=== PATIENT | female | born 1970 | race Caucasian/White ===

== ENCOUNTER 2017-03-23 15:06 | Emergency (ER) | payer OTHER ==
[~2017-03-23] VITALS: Ht 142.2 cm; Wt 44.9 kg
--- NOTE | ~2017-03-23 | CT2 ---
[facility] A Service of [facility] RADIOLOGY TEXT RESULTS PATIENT: OPAL MCCRACKEN LOCATION: [facility] : [birth year] UNIT #: [id number] AGE: [address]: Osmin Baker MD SEX: F ORDER DR: [id number] [facility]. [place], [place] [address] [id number] E MR#: [id number] Acc #: [id number] NAME: OPAL MCCRACKEN : 1970 SEX: F STUDY DATE/TIME: 03/23/2017 17:21 UNIT: MARK ROOM: STUDY DESCRIPTION: CT Abd and Pelv W Cont Attending Physician: Osmin Baker M.D. Ordering Physician: Jeet Shea M.D. Primary Care Physician: Osmin Weldon M.D. MEDICAL IMAGING REPORT This report is preliminary unless electronic signature is present EXAM CT abdomen and pelvis. INDICATION Bilateral lower quadrant abdominal pain for 3 weeks. Nausea, vomiting, and diarrhea. TECHNIQUE CT of the abdomen and pelvis utilizing 100 mL Isovue-370 IV contrast. Coronal and sagittal reconstructions were obtained. This CT exam was performed with one or more of the following radiation dose reduction techniques: automatic exposure control, adjustment of mA and/or kV according to patient size, and iterative reconstruction. COMPARISON None available. FINDINGS ABDOMEN: There is borderline hepatomegaly. There is diffuse hepatic steatosis. The gallbladder is surgically absent. The pancreas, spleen, adrenal glands, and kidneys are within normal limits. The bowel is not dilated. The appendix is surgically absent. There is a supraumbilical anterior abdominal wall hernia. Given the linear orientation, this is felt to be an incisional type hernia. No complicating features. There are some borderline retroperitoneal lymph nodes extending along the right iliac chain. The uterus and ovaries are grossly normal. 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 No new osseous abnormalities. IMPRESSION [facility] A Service of [facility] RADIOLOGY TEXT RESULTS PATIENT: OAPL MCCRACKEN LOCATION: [facility] : [birth year] UNIT #: [id number] AGE: [address]: Osmin Baker MD SEX: F ORDER DR: 1. Hepatic steatosis and borderline hepatomegaly. 2. Increased number of small subcentimeter lymph nodes along the right iliac lymph node chain. It is not considered to be pathologically enlarged, however, there are unusual in their number. Consider a precautionary followup exam to further evaluate. No additional poonam stations are enlarged. 3. Complex anterior abdominal bowel wall hernia, likely an incisional type hernia. No complicating features. Dictated by... Syed Brower M.D. THIS IS AN ELECTRONICALLY VERIFIED REPORT Syed Brower M.D. at 03/24/2017 7:49 PM PEREZ/xavier TD: 03/24/2017 17:40 JOB #: [id number] MEDICAL IMAGING REPORT Page 1 of 1 COPY
[~2017-03-23 15:06] MED LIST: ALEVE220 M1 PO; CALCIUM + D 6001 TA1 PO; DESMOPRESSIN A0.1 MG PO; HYDROXYUREA500 M1 PO; LEVOTHYROXINE PO; NAPROXEN PO; NEURONTIN PO; PHENERGAN PO; PHENERGAN SUPP25 MG PR; PLAQUENIL200 MG PO; PREDNISONE; PREDNISONE5 M1 PO; PRILOSEC PO; ROXICODONE5 MG PO; TIGAN PO; ZANAFLEX PO; ZOFRANODT PO
[2017-03-23 15:37] LABS: BASOPHIL% 0.3 % (0-2.5); EOSINOPHIL% 0.2 % (0.0-7.0); HEMATOCRIT 35.7 % (35.0-45.0); HEMOGLOBIN 11.5 gm/dL (12.0-16.0); LYMPHOCYTE# 0.8 X10e3 (1.0-3.5); LYMPHOCYTE% 14.5 % (17.0-45.0); MEAN CELL VOLUME 80.1 FL (83-96); MEAN CORPUSCULAR HEMOGLOBIN 25.8 PG (28-34); MEAN CORPUSCULAR HGB CONC 32.2 g/dL (30-36); MEAN PLATELET VOLUME 7.9 FL (6.5-11.5); MONOCYTE# 0.1 X10e3 (0-1.0); MONOCYTE% 2.1 % (3.0-12.0); NEUTROPHIL# 4.4 X10e3 (1.5-7.1); NEUTROPHIL% 82.9 % (40-75); PLATELET COUNT 184 X10e3 (140-420); RED BLOOD COUNT 4.45 X10e (3.90-5.30); RED CELL DISTRIBUTION WIDTH 17.8 % (11.0-15.5); WHITE BLOOD COUNT 5.3 X10e3 (4.0-10.5)
[2017-03-23 15:43] LABS: DIFF IND NO
[2017-03-23 16:02] LABS: ALBUMIN SERUM 2.4 g/dL (3.5-5.0); BILIRUBIN, DIRECT 0.2 mg/dL (0.0-0.2); BILIRUBIN,INDIRECT 0.5 mg/dL (0.0-0.9); BILIRUBIN,TOTAL 0.7 mg/dL (0.2-2.0); BUN/CREATININE RATIO 13.63; CALCIUM SERUM 7.7 mg/dL (8.4-10.2); CREATININE SERUM 1.1 mg/dL (0.6-1.4); GLOM FILT RATE Estimated 59.8 mL/min (>60); POTASSIUM 3.9 mmol/L (3.5-5.1); PROTEIN TOTAL SERUM 6.3 g/dL (6.0-8.3)
[2017-03-23 16:09] LABS: URINE APPEARANCE CLEAR; URINE BILIRUBIN NEG (NEG); URINE BLOOD NEG (NEG); URINE COLOR DK YELLOW; URINE GLUCOSE NEG (NEG); URINE KETONE NEG (NEG); URINE LEUKOCYTE ESTERASE NEG (NEG); URINE NITRATE NEG (NEG); URINE PH 5.5 (5-8); URINE PROTEIN TRACE (NEG)
[2017-03-23 16:16] LABS: CULTURE INDICATED? NO; URINE SOURCE CATH
== END 2017-03-23 19:55 | disposition home or self-care (01) ==
LOC: CED 15:06
PROVIDERS: Emergency Medicine
DX: E87.1 Hypo-osmolality and hyponatremia (principal); E11.9 Type 2 diabetes mellitus without complications; E03.9 Hypothyroidism, unspecified; G47.33 Obstructive sleep apnea (adult) (pediatric); F17.200 Nicotine dependence, unspecified, uncomplicated; Z90.49 Acquired absence of other specified parts of digestive tract; Z88.1 Allergy status to other antibiotic agents; Z88.5 Allergy status to narcotic agent
CPT/HCPCS: 36415; 51701; 74177; 80048; 80076; 81003; 82150; 83605; 83690; 85025; 96361; 96374; 96375; 99284; J2270; J2405; Q9967

== ENCOUNTER 2017-04-03 13:13 | Emergency (ER) | payer OTHER ==
[~2017-04-03] VITALS: Ht 142.2 cm; Wt 44.9 kg
--- NOTE | ~2017-04-03 | EKG ---
PATIENT: OPAL MCCRACKEN UNIT #: [id number] Ventricular Rate: 79 BPM Atrial Rate: 79 BPM P-R Interval: 138 ms QRS Duration: 84 ms Q-T Interval: 416 ms QTC Calculation(Bezet): 477 ms P Austin: 60 degrees Calculated R Austin: 27 degrees Calculated T Austin: 31 degrees Diagnosis Line: Normal sinus rhythm Diagnosis Line: Nonspecific T wave abnormality Diagnosis Line: probably normal ekg Diagnosis Line: No previous ECGs available Diagnosis Line: Confirmed by VIVI MUÑOZ MD ([id number]) on 04/04/2017 Diagnosis Line: 10:22:06 PM INTERPRETING MD: TONI COLLINS
--- NOTE | ~2017-04-03 | CR72 ---
[facility] A Service of [facility] RADIOLOGY TEXT RESULTS PATIENT: OPAL MCCRACKEN LOCATION: [facility] : 68 UNIT #: [id number] AGE: [address]: Catracho Hilliard MD SEX: F ORDER DR: [id number] [facility] [address] [facility]. [place], [place] [address] [id number] E MR#: [id number] Acc #: [id number] NAME: OPAL MCCRACKEN : 1970 SEX: F STUDY DATE/TIME: 04/03/2017 13:52 UNIT: [facility] ROOM: STUDY DESCRIPTION: CR Chest Single View Portable Attending Physician: Milana Kay M.D. Ordering Physician: Milana Kay M.D. Primary Care Physician: Osmin Weldon M.D. MEDICAL IMAGING REPORT This report is preliminary unless electronic signature is present EXAM Portable chest INDICATION Shortness of breath, weakness, nausea, vomiting, weight loss for 3 weeks. COMPARISON 10/20/2015 FINDINGS Lungs are well expanded. There is no acute infiltrate. Heart size stable. Visualized osseous structures unremarkable. Cholecystectomy clips. IMPRESSION No active disease. Dictated by... Sixto Weldon M.D. THIS IS AN ELECTRONICALLY VERIFIED REPORT Sixto Weldon M.D. at 04/03/2017 5:30 PM Rosana TD: 04/03/2017 15:20 JOB #: [id number] MEDICAL IMAGING REPORT Page 1 of 1 COPY
--- NOTE | ~2017-04-03 | CT4 ---
[facility] A Service of [facility] RADIOLOGY TEXT RESULTS PATIENT: OPAL MCCRACKEN LOCATION: [facility] : 68 UNIT #: [id number] AGE: [address]: Catracho Hilliard MD SEX: F ORDER DR: [id number] [facility] [address] [facility]. [place], [place] [address] [id number] E MR#: [id number] Acc #: [id number] NAME: OPAL MCCRACKEN : 1970 SEX: F STUDY DATE/TIME: 04/03/2017 16:48 UNIT: [facility] ROOM: STUDY DESCRIPTION: CT Abd and Pelv Wo Cont Attending Physician: Catracho Hilliard M.D. Ordering Physician: Catracho Hilliard M.D. Primary Care Physician: Osmin Weldon M.D. MEDICAL IMAGING REPORT This report is preliminary unless electronic signature is present EXAM CT abdomen and pelvis without contrast INDICATIONS Central and left-sided abdominal pain and nausea and vomiting for [address] scan of the abdomen and pelvis was performed without contrast. Coronal and sagittal reformatted images were obtained. This CT exam was performed with one or more of the following radiation dose reduction techniques: Automatic exposure control, adjustment of mA and/or kV according to patient size, and iterative reconstruction. Comparison is made with 03/23/2017. FINDINGS There is minimal interstitial thickening in the left base. Stable fatty infiltration of the liver. Cholecystectomy. The spleen is unremarkable. The kidneys, adrenal glands and pancreas is unremarkable. Stable ventral abdominal wall hernia. PELVIS: There is fairly diffuse thickening of the colon, suggestive of colitis. There is no evidence for abscess or bowel obstruction. Lower pelvis obscured by streak artifact from hip arthroplasties. Remainder of the pelvis unchanged. Bone windows show bilateral hip arthroplasties. IMPRESSION 1. There is fairly diffuse, mild colonic thickening suggestive of colitis. Correlate clinically. 2. The remainder of the study is not significantly changed from the most recent study. [facility] A Service of [facility] RADIOLOGY TEXT RESULTS PATIENT: OPAL MCCRACKEN LOCATION: [facility] : 68 UNIT #: [id number] AGE: [address]: Catracho Hilliard MD SEX: F ORDER DR: Dictated by... Sixto Weldon M.D. THIS IS AN ELECTRONICALLY VERIFIED REPORT Sixto Weldon M.D. at 04/05/2017 7:58 AM ARS/paulo TD: 04/03/2017 21:40 JOB #: [id number] MEDICAL IMAGING REPORT Page 1 of 1 COPY
[2017-04-03 14:11] LABS: URINE APPEARANCE CLOUDY; URINE BILIRUBIN NEG (NEG); URINE BLOOD NEG (NEG); URINE COLOR YELLOW; URINE GLUCOSE NEG (NEG); URINE KETONE NEG (NEG); URINE LEUKOCYTE ESTERASE NEG (NEG); URINE NITRATE NEG (NEG); URINE PH 6.5 (5-8); URINE PROTEIN NEG (NEG); URINE SPECIFIC GRAVITY 1.004 (1.003-1.035); URINE UROBILINOGEN 0.2 MG/DL (NEG)
[2017-04-03 14:15] LABS: BASOPHIL# 0.2 X10e3 (0-0.3); BASOPHIL% 1.3 % (0-2.5); EOSINOPHIL# 0.1 X10e3 (0-0.7); EOSINOPHIL% 0.7 % (0.0-7.0); HEMATOCRIT 33.8 % (35.0-45.0); LYMPHOCYTE# 2.7 X10e3 (1.0-3.5); LYMPHOCYTE% 16.6 % (17.0-45.0); MEAN CELL VOLUME 79.2 FL (83-96); MEAN CORPUSCULAR HEMOGLOBIN 25.8 PG (28-34); MEAN CORPUSCULAR HGB CONC 32.6 g/dL (30-36); MEAN PLATELET VOLUME 7.1 FL (6.5-11.5); MONOCYTE# 0.8 X10e3 (0-1.0); MONOCYTE% 4.8 % (3.0-12.0); NEUTROPHIL# 12.5 X10e3 (1.5-7.1); NEUTROPHIL% 76.6 % (40-75); PLATELET COUNT 313 X10e3 (140-420); RED BLOOD COUNT 4.26 X10e (3.90-5.30); RED CELL DISTRIBUTION WIDTH 18.1 % (11.0-15.5); WHITE BLOOD COUNT 16.4 X10e3 (4.0-10.5)
[2017-04-03 14:17] LABS: URINE SOURCE CATH
[2017-04-03 14:18] LABS: CULTURE INDICATED? NO
[2017-04-03 14:20] LABS: DIFF IND YES
[2017-04-03 14:27] LABS: INR 1.1; PARTIAL THROMBOPLASTIN TIME 31.6 SECONDS (23.5-31.3); PROTHROMBIN TIME (PATIENT) 12.1 SECONDS (10.0-11.7)
[2017-04-03 14:36] LABS: ALBUMIN SERUM 2.5 g/dL (3.5-5.0); BILIRUBIN, DIRECT 0.2 mg/dL (0.0-0.2); BILIRUBIN,INDIRECT 0.4 mg/dL (0.0-0.9); BILIRUBIN,TOTAL 0.6 mg/dL (0.2-2.0); CREATININE SERUM 0.6 mg/dL (0.6-1.4); GLOM FILT RATE Estimated 108.5 mL/min (>60); MAGNESIUM 1.9 mg/dL (1.6-3.0); POTASSIUM 3.4 mmol/L (3.5-5.1); PROTEIN TOTAL SERUM 6.1 g/dL (6.0-8.3)
[2017-04-03 14:53] LABS: ANISOCYTOSIS MOD; HYPOCHROMIA SL; MICROCYTOSIS SL; PLATELET ESTIMATE NORMAL (NORMAL)
[2017-04-03 14:54] LABS: POIKILOCYTOSIS SL; POLYCHROMASIA SL; STOMATOCYTE PRESENT
[2017-04-03 15:07] LABS: POC - CKMB <1.0 ng/mL (0.0-7.9); POC - TROPONIN <0.05 ng/mL (<=0.05)
[2017-04-03 16:52] LABS: POC - CKMB <1.0 ng/mL (0.0-7.9); POC - TROPONIN <0.05 ng/mL (<=0.05)
== END 2017-04-03 18:20 | disposition home or self-care (01) ==
LOC: CED 13:13
PROVIDERS: Emergency Medicine
DX: K52.9 Noninfective gastroenteritis and colitis, unspecified (principal); D72.829 Elevated white blood cell count, unspecified; E03.9 Hypothyroidism, unspecified; G43.909 Migraine, unspecified, not intractable, without status migrainosus; F17.210 Nicotine dependence, cigarettes, uncomplicated; Z90.49 Acquired absence of other specified parts of digestive tract; Z90.89 Acquired absence of other organs; Z88.1 Allergy status to other antibiotic agents; Z88.5 Allergy status to narcotic agent; Z88.8 Allergy status to other drugs, medicaments and biological substances
CPT/HCPCS: 36415; 51701; 71010; 74176; 80048; 80076; 81003; 82553; 83690; 83735; 84443; 84484; 85025; 85610; 85730; 93005; 99285; J2405